=== PATIENT | female | born 1945 | race Caucasian/White ===

== ENCOUNTER → 2016-11-06 | Outpatient (CLI) | payer MEDICARE, BC ==
--- NOTE | 2016-11-07 08:36 | WOMENS IMAGING REPORT ---
EXAM DESCRIPTION: U/S BREAST UNILAT LIMITED COMPLETED DATE/TIME: 11/06/2016 9:23 am REASON FOR STUDY: RT BREAST PAIN;N64.4 N64.4 MASTODYNIA COMPARISON: 01/03/2016 TECHNIQUE: Real-time and static grayscale imaging performed of the right breast and chest wall targe yoly to the area of pain. Selected color Doppler images recorded. LIMITATIONS: None. FINDINGS: MASS: No mass identified. Normal glandular tissue. OTHER: No other significant finding. BIRAD: 1 Negative. RECOMMENDATION: RECOMMENDED FOLLOW-UP: Please continue bilateral screening mammography in December 2016 . Consider screening tomosynthesis COMMENT: The [employer] (ACR) has developed recommendations for screening MRI of the breasts in certain patient populations, to be used in conjunction with mammography. Breast MRI s urveillance may be appropriate for women with more than 20% lifetime risk of developing breast cancer as determined by genetic testing, significant family history of the disease, or history of mantle r adiation for Hodgkins Disease. ACR Practice Guidelines 2008. TECHNICAL DOCUMENTATION: JOB ID: [id number] [email or web address]- All Rights Reserved
== END ==
LOC: WI 08:16
PROVIDERS: ATTEND Pain Medicine Interventional Pain Medicine
DX: N64.4 Mastodynia (principal)
CPT/HCPCS: 76642

== ENCOUNTER → 2017-01-04 | Outpatient (CLI) | payer MEDICARE, BC | LOC: WI 10:31 | DX: Z12.31 Encounter for screening mammogram for malignant neoplasm of breast (principal) | CPT/HCPCS: 77067; G0202 ==

== ENCOUNTER 2017-10-09 12:19 | Emergency (ER) | payer MEDICARE, BC ==
--- NOTE | 2017-10-09 13:29 | ER Document Report ---
ED GI/ - General Chief Complaint: Urinary Problem Stated Complaint: URINATING ISSUES Time Seen by Provider: 10/09/17 13:17 Mode of Arrival: Ambulatory Information source: Patient, [facility] Records Notes: This 71-year-old female patient comes emergency room due to inability to urinate since yesterday and abdominal pain with constipation. She reports yesterday she would have small amounts of urine come out when she would sit and strain to try to have a bowel movement. She did feel like she cannot empty his bladder. She did a suppository early this morning and eventually did have some bowel movement. While at the hospital she had small hard bowel movement and felt like she emptied her bladder as she urinated a large volume. TRAVEL OUTSIDE OF THE [place] IN LAST 30 DAYS: No - Related Data Allergies/Adverse Reactions: prochlorperazine [From Compazine] Allergy (Verified 10/09/17 12:22) Past Medical History - General Information source: Patient - Social History Smoking Status: Never Smoker Cigarette use (# per day): No Chew tobacco use (# tins/day): No Smoking Education Provided: No Frequency of alcohol use: None Drug Abuse: None Occupation: Retired Lives with: Family Family History: Reviewed & Not Pertinent Patient has suicidal ideation: No Patient has homicidal ideation: No - Past Medical History Cardiac Medical History: Reports: Hx Hypercholesterolemia, Hx Hypertension Pulmonary Medical History: Reports: None EENT Medical History: Reports: None Neurological Medical History: Reports: None Endocrine Medical History: Reports: None Renal/ Medical History: Reports: None GI Medical History: Reports: Hx Irritable Bowel Musculoskeltal Medical History: Reports None Psychiatric Medical History: Reports: Hx Anxiety, Hx Depression Past Surgical History: Reports: Hx Abdominal Surgery - Oratory laparotomy, Hx Cholecystectomy, Hx Hysterectomy, Hx Neurologic Surgery - Cervical fusion from C4 through C7, Hx Orthopedic Surgery - Right carpal tunnel surgery, left wrist tendonitis surgery, shoulder surger, Hx Tonsillectomy, Other - Right eye surgery. L4-5 lumbar laminectomy Review of Systems - Review of Systems Constitutional: No symptoms reported EENT: No symptoms reported Cardiovascular: No symptoms reported Respiratory: No symptoms reported Gastrointestinal: See HPI Genitourinary: See HPI Female Genitourinary: Post menopausal Musculoskeletal: No symptoms reported Skin: No symptoms reported Hematologic/Lymphatic: No symptoms reported Neurological/Psychological: No symptoms reported Physical Exam - Vital signs Vitals: Temp Pulse Resp BP Pulse Ox 99.7 F 97 21 H 124/77 95 10/09/17 12:26 10/09/17 12:26 10/09/17 12:26 10/09/17 12:26 10/09/17 12:26 Interpretation: Normal - General General appearance: Appears well, Alert In distress: None - HEENT Head: Normocephalic, Atraumatic Eyes: Normal Pupils: PERRL Neck: Supple - Respiratory Respiratory status: No respiratory distress Breath sounds: Normal - Cardiovascular Rhythm: Regular Heart sounds: Normal auscultation Murmur: No - Abdominal Inspection: Normal Bowel sounds: Normal Tenderness: Tender - Some minimal suprapubic tenderness on palpation where the patient reports a full sensation in her bladder - Back Back: Normal - Extremities General upper extremity: Normal inspection, Nontender, Normal color, Normal ROM , Normal temperature General lower extremity: Normal inspection, Nontender, Normal color, Normal ROM , Normal temperature, Normal weight bearing - Neurological Neuro grossly intact: Yes - Psychological Associated symptoms: Normal affect, Normal mood - Skin Skin Temperature: Warm Skin Moisture: Dry Skin Color: Normal Course - Re-evaluation Re-evalutation: 10/09/17 21:43 A Valentin catheter was placed and the patient went to have a KUB done. When she came back the volume was measured at 355 mL's of urine. The KUB showed a lot of stool in the colon but no fecal impaction. The urinalysis did not show signs of infection. She was given a bottle of mag citrate to drink. A leg bag was placed. The catheter will be left as 355 mL's of residual volume suggests that this will be more of a problem if she does not get her bowels moving. Also recommended to drink lots of fluids and start taking MiraLAX tomorrow. After her bowels have been moving quite well for at least a day, then she was instructed on how to use a syringe to deflate the balloon and remove the Valentin catheter. If she has no further problems then she should just stay on MiraLAX. If she has more constipation problems or more problems emptying her bladder and she should follow-up with a primary care provider this week. - Vital Signs Vital signs: Temp Pulse Resp BP Pulse Ox 98.4 F 103 H 21 H 104/59 L 93 10/09/17 16:08 10/09/17 16:08 10/09/17 12:26 10/09/17 16:08 10/09/17 16:08 - Diagnostic Test Radiology reviewed: Image reviewed, Reports reviewed - Large amount of stool throughout the colon Discharge - Discharge Clinical Impression: Acute urinary retention Constipation Qualifiers: Constipation type: unspecified constipation type Qualified Code(s): K59.00 - Constipation, unspecified Condition: Stable Disposition: HOME, SELF-CARE Additional Instructions: You appear to have urinary retention caused by constipation. Valentin catheter placement showed a urine residual 335 mL. This shows you are still unable to empty her bladder so the catheter will be left until you have had several large bowel movements. There was no sign of urinary tract infection. You were given a bottle of amnesia of citrate to drink here. You should drink lots of water when you get home. Start taking MiraLAX every day and drink lots of fluids every day. Once your bowels are moving well, you may remove the catheter. He will be sent home with a syringe to deflate the balloon before you pull the catheter out. You should follow-up with your primary care provider later this week if you are not having good bowel movements and able to remove the catheter and then began emptying your bladder as you usually would. RETURN TO THE EMERGENCY ROOM IF ANY NEW OR WORSENING SYMPTOMS.
[2017-10-09] MEDS ORDERED: MAGNESIUM CITRATE 296 ML BOTTLE PO ONE (14:17)
[2017-10-09 14:20] LABS: APPEARANCE,URINE CLEAR; BILIRUBIN,URINE NEGATIVE (NEGATIVE); COLOR,URINE YELLOW; GLUCOSE, URINE NEGATIVE (NEGATIVE); KETONES,URINE NEGATIVE (NEGATIVE); LEUKOCYTE ESTERASE,URINE NEGATIVE (NEGATIVE); NITRITE,URINE NEGATIVE (NEGATIVE); PROTEIN,URINE NEGATIVE (NEGATIVE); UROBILINOGEN,URINE NEGATIVE mg/dL (<2.0)
--- NOTE | 2017-10-09 14:27 | RADIOLOGY REPORT (SQ) ---
EXAM DESCRIPTION: KUB/ABDOMEN (SINGLE VIEW) COMPLETED DATE/TIME: 10/09/2017 2:18 pm REASON FOR STUDY: Constipation COMPARISON: None. NUMBER OF VIEWS: One view. TECHNIQUE: Supine radiographic image of the abdomen acquired. LIMITATIONS: None. FINDINGS: BOWEL GAS PATTERN: Normal bowel gas pattern. Moderate amount of stool throughout. No dil ated loops. CALCIFICATIONS: No suspicious calcifications. SOFT TISSUES: No gross mass or suggestion of organomegaly. HARDWARE: None in the abdomen. BONES: No acute fracture. No worrisome bone lesions. OTHER: No other significant finding. IMPRESSION: NO RADIOGRAPHIC EVIDENCE FOR ACUTE ABDOMINAL DISEASE. TECHNICAL DOCUMENTATION: JOB ID: [id number] [employer]- All Rights Reserved
[2017-10-09 16:15] VITALS: BP 104/59
== END 2017-10-09 16:15 | disposition home or self-care (01) ==
LOC: ER 12:19
DX: R33.9 Retention of urine, unspecified (principal); K59.00 Constipation, unspecified; E78.00 Pure hypercholesterolemia, unspecified; I10 Essential (primary) hypertension; Z90.49 Acquired absence of other specified parts of digestive tract; Z90.710 Acquired absence of both cervix and uterus; Z98.1 Arthrodesis status
CPT/HCPCS: 99284; 51702; 81001; 74018; J3490

== ENCOUNTER 2017-10-12 12:28 | Emergency (ER) | payer MEDICARE, BC ==
--- NOTE | 2017-10-12 14:06 | ER Document Report ---
HPI - HPI Patient complains to provider of: Needs Harrell removed Pain Level: Denies Context: 71-year-old female that came in the other day to the emergency room with constipation and inability to empty her bladder is now relieved the constipation and was told by Dr. Li that she get her Harrell removed today. She was not given a syringe that she had to come back to the emergency room to get the Harrell removed. No abdominal pain, nausea, vomiting, and or fever. Associated Symptoms: None Exacerbated by: Denies Relieved by: Denies Similar symptoms previously: No Recently seen / treated by doctor: No - ROS ROS below otherwise negative: Yes Systems Reviewed and Negative: Yes All other systems reviewed and negative Past Medical History - General Information source: Patient - Social History Smoking Status: Never Smoker Frequency of alcohol use: None Drug Abuse: None Lives with: Family Family History: Reviewed & Not Pertinent - Past Medical History Cardiac Medical History: Reports: Hx Hypercholesterolemia, Hx Hypertension Renal/ Medical History: Denies: Hx Peritoneal Dialysis GI Medical History: Reports: Hx Irritable Bowel Psychiatric Medical History: Reports: Hx Anxiety, Hx Depression Past Surgical History: Reports: Hx Abdominal Surgery - Oratory laparotomy, Hx Cholecystectomy, Hx Hysterectomy, Hx Neurologic Surgery - Cervical fusion from C4 through C7, Hx Orthopedic Surgery - Right carpal tunnel surgery, left wrist tendonitis surgery, shoulder surger, Hx Tonsillectomy, Other - Right eye surgery. L4-5 lumbar laminectomy Vertical Provider Document - CONSTITUTIONAL Agree With Documented VS: Yes Exam Limitations: No Limitations - INFECTION CONTROL TRAVEL OUTSIDE OF THE [place] IN LAST 30 DAYS: No - HEENT HEENT: Normocephalic - NECK Neck: Supple - RESPIRATORY O2 Sat by Pulse Oximetry: 92 - GI/ABDOMEN Gastrointestinal: Abdomen Soft, Abdomen Non-Tender - MUSCULOSKELETAL/EXTREMETIES Musculoskeletal/Extremeties: DOMINGUEZ HWANG - NEURO Level of Consciousness: Awake, Alert, Appropriate - DERM Integumentary: Warm, Dry Course - Re-evaluation Re-evalutation: 10/12/17 14:17 I removed the harrell - Vital Signs Vital signs: Temp Pulse Resp BP Pulse Ox 98.3 F 68 16 140/76 H 92 10/12/17 12:37 10/12/17 12:37 10/12/17 12:37 10/12/17 12:37 10/12/17 12:37 Discharge - Discharge Clinical Impression: Encounter for Harrell catheter removal Condition: Good Disposition: HOME, SELF-CARE Additional Instructions: Return to the emergency room your primary care doctor if he get any symptoms of a urinary tract infection which would be burning with urination frequency urgency hard to hold it, if you develop a abdominal pain or fever. continue the MiraLAX 1 capful per day with 8 ounces of water so you will not get constipated again you you remember your question, call [phone] Shanda
[2017-10-12 14:27] VITALS: BP 132/89
== END 2017-10-12 14:32 | disposition home or self-care (01) ==
LOC: ER 12:28
DX: Z46.89 Encounter for fitting and adjustment of other specified devices (principal); T83.9XXA Unspecified complication of genitourinary prosthetic device, implant and graft, initial encounter; K59.00 Constipation, unspecified
CPT/HCPCS: 99283

== ENCOUNTER 2017-12-07 20:27 | Emergency (ER) | payer MEDICARE, BC ==
[2017-12-07 21:22] LABS: APPEARANCE,URINE SLIGHTLY-CLOUDY; BILIRUBIN,URINE NEGATIVE (NEGATIVE); COLOR,URINE YELLOW; GLUCOSE, URINE NEGATIVE (NEGATIVE); KETONES,URINE NEGATIVE (NEGATIVE); LEUKOCYTE ESTERASE,URINE LARGE (NEGATIVE); NITRITE,URINE NEGATIVE (NEGATIVE); PROTEIN,URINE NEGATIVE (NEGATIVE); URINE SPECIFIC GRAVITY 1.023
--- NOTE | 2017-12-07 21:50 | EKG REPORT ---
SEVERITY:- OTHERWISE NORMAL ECG - SINUS RHYTHM BORDERLINE LEFT AXIS DEVIATION : Confirmed by: Best Lovelace MD 07-Dec-2017 21:50:23
--- NOTE | 2017-12-07 22:19 | RADIOLOGY REPORT (SQ) ---
EXAM DESCRIPTION: CHEST SINGLE VIEW COMPLETED DATE/TIME: 12/07/2017 10:12 pm REASON FOR STUDY: chest pain COMPARISON: None. NUMBER OF VIEWS: One view. TECHNIQUE: Single frontal radiographic view of the chest acquired. LIMITATIONS: None. FINDINGS: LUNGS AND PLEURA: No opacities, masses or pneumothorax. No pleural effusion. MEDIASTINUM AND HILAR STRUCTURES: No masses. Contour normal. HEART AND VASCULAR STRUCTURES: Heart enlarged without failure. Normal vasculature. BONES: No acute findings. HARDWARE: None in the chest. OTHER: No other significant finding. IMPRESSION: HEART ENLARGED WITHOUT FAILURE. NO OTHER SIGNIFICANT RADIOGRAPHIC FINDING IN THE CHEST. TECHNICAL DOCUMENTATION: JOB ID: [id number] [employer]- All Rights Reserved Reading location - IP/workstation name: [email or web address]
[2017-12-07 23:13] LABS: ABSOLUTE BASOPHILS # (AUTO) 0.1 10^3/uL (0.0-0.2); ABSOLUTE EOSINOPHILS # (AUTO) 0.1 10^3/uL (0.0-0.6); ABSOLUTE LYMPHOCYTES (AUTO) 1.9 10^3/uL (0.5-4.7); ABSOLUTE MONOCYTES (AUTO) 0.9 10^3/uL (0.1-1.4); ABSOLUTE NEUT (AUTO) 9.4 10^3/uL (1.7-8.2); BASOPHILS % (AUTO) 0.5 % (0-2); EOSINOPHILS % (AUTO) 1.2 % (0-6); HEMATOCRIT 40.1 % (36.0-47.0); HEMOGLOBIN 13.6 g/dL (12.0-15.5); LYMPHOCYTES % (AUTO) 15.3 % (13-45); MEAN CORPUSCULAR HEMOGLOBIN 30.4 pg (27.0-33.4); MEAN CORPUSCULAR HGB CONC 33.9 g/dL (32.0-36.0); MEAN CORPUSCULAR VOLUME 90 fl (80-97); MONOCYTES % (AUTO) 7.5 % (3-13); PLATELET COUNT 217 10^3/uL (150-450); RED BLOOD COUNT 4.48 10^6/uL (3.72-5.28); RED CELL DISTRIBUTION WIDTH 13.8 % (11.5-14.0); SEGMENTED NEUTROPHILS % (AUTO) 75.5 % (42-78); TOTAL CELLS COUNTED % (AUTO) 100 %; WHITE BLOOD COUNT 12.4 10^3/uL (4.0-10.5)
[2017-12-07] MEDS ORDERED: CEPHALEXIN 500 MG CAPSULE PO ONE (23:18)
[2017-12-07] MEDS ORDERED: HALOPERIDOL LACTATE INJ 5 MG/1 ML VIAL IV ONE (23:18)
[2017-12-07] MEDS ORDERED: FAMOTIDINE 20 MG TABLET PO ONE (23:18)
[2017-12-07 23:26] LABS: ANION GAP 12 (5-19); BLOOD UREA NITROGEN 22 mg/dL (7-20); CALCIUM 9.9 mg/dL (8.4-10.2); CARBON DIOXIDE 24 mmol/L (22-30); CHLORIDE 106 mmol/L (98-107); CREATINE KINASE 75 U/L (30-135); GLUCOSE 115 mg/dL (75-110); POTASSIUM 4.2 mmol/L (3.6-5.0); SODIUM 141.5 mmol/L (137-145)
--- NOTE | 2017-12-07 23:28 | ER Document Report ---
ED General - General Chief Complaint: Nausea Stated Complaint: NAUSEA/CHEST PAIN Time Seen by Provider: 12/07/17 21:51 Notes: Patient is a 72-year-old female with a past medical history of depression, anxiety, hypertension, and chronic nausea after a Ivon fundoplication that was performed in 2004 who presents with a "out of body experience" with associated nausea and epigastric abdominal discomfort. Patient states that she was sitting down at the dinner table after taking the first dose of Marinol which was prescribed to her for chronic nausea. She reports that she felt like she was looking "from the outside in" on the entire seen in the kitchen. She states that she found this experience to be extremely disturbing. She states that she also had severe nausea during this episode with associated epigastric abdominal discomfort. She denies any distinct chest pain. She notes that the epigastric abdominal discomfort was a dull, mild, aching pain. She notes that that pain has since resolved. She does continue to feel nauseated. She took Zofran at home which did not improve her symptoms. Nothing worsens her symptoms. She does have a history of chronic daily nausea which she notes is roughly the same as it is currently. She has not seen her primary care doctor regarding today's episode. She denies any history of similar symptoms in the past. She has no history of cardiac disease, DVT or pulmonary embolus. TRAVEL OUTSIDE OF THE [place] IN LAST 30 DAYS: No - Related Data Allergies/Adverse Reactions: prochlorperazine [From Compazine] Allergy (Verified 10/12/17 14:06) Past Medical History - General Information source: Patient - Social History Smoking Status: Never Smoker Frequency of alcohol use: None Drug Abuse: None Lives with: Spouse/Significant other Family History: Reviewed & Not Pertinent Patient has suicidal ideation: No Patient has homicidal ideation: No - Past Medical History Cardiac Medical History: Reports: Hx Hypercholesterolemia, Hx Hypertension Renal/ Medical History: Denies: Hx Peritoneal Dialysis GI Medical History: Reports: Hx Irritable Bowel Psychiatric Medical History: Reports: Hx Anxiety, Hx Depression Past Surgical History: Reports: Hx Abdominal Surgery - Oratory laparotomy, Hx Cholecystectomy, Hx Hysterectomy, Hx Neurologic Surgery - Cervical fusion from C4 through C7, Hx Orthopedic Surgery - Right carpal tunnel surgery, left wrist tendonitis surgery, shoulder surger, Hx Tonsillectomy, Other - Right eye surgery. L4-5 lumbar laminectomy Review of Systems - Review of Systems Notes: Constitutional: Negative for fever. HENT: Negative for sore throat. Eyes: Negative for visual changes. Cardiovascular: Negative for chest pain. Respiratory: Negative for shortness of breath. Gastrointestinal: Positive for epigastric abdominal pain and nausea Genitourinary: Negative for dysuria. Musculoskeletal: Negative for back pain. Skin: Negative for rash. Neurological: Negative for headaches, weakness or numbness. 10 point ROS negative except as marked above and in HPI. Physical Exam - Vital signs Vitals: Temp Pulse Resp BP Pulse Ox 98.5 F 87 14 147/81 H 96 12/07/17 20:47 12/07/17 20:47 12/07/17 20:47 12/07/17 20:47 12/07/17 20:47 Interpretation: Normal Notes: PHYSICAL EXAMINATION: GENERAL: Well-appearing, well-nourished and in no acute distress. HEAD: Atraumatic, normocephalic. EYES: Pupils equal round and reactive to light, extraocular movements intact, sclera anicteric, conjunctiva are normal. ENT: nares patent, oropharynx clear without exudates. Moist mucous membranes. NECK: Normal range of motion, supple without lymphadenopathy LUNGS: Breath sounds clear to auscultation bilaterally and equal. No wheezes rales or rhonchi. HEART: Regular rate and rhythm without murmurs ABDOMEN: Soft, nontender, normoactive bowel sounds. No guarding, no rebound. No masses appreciated. EXTREMITIES: Normal range of motion, no pitting or edema. No cyanosis. NEUROLOGICAL: No focal neurological deficits. Moves all extremities spontaneously and on command. PSYCH: Mildly anxious SKIN: Warm, Dry, normal turgor, no rashes or lesions noted. Course - Re-evaluation Re-evalutation: 12/07/17 23:26 Patient presents with multiple atypical complaints, mostly complaining about an "out of body experience" that occurred shortly prior to arrival. The patient reports that shortly after taking Marinol, she was sitting down to dinner table , became very nauseated and felt like she was looking at the room from the "outside in". She notes that she had an episode of a dull pressure-like sensation in her epigastrium but denies any distinct chest pain, shortness of breath, or radiation of the discomfort. At the time of my assessment she notes that all symptoms except the nausea have since resolved. The patient does relate a very long-standing history of chronic nausea ever since she had a Ivon fundoplication in 2004. Patient does relate a history of recurrent reflux symptoms and I do believe this is likely contributing to some of her chronic nausea she is not currently on any therapies for this. Patient's EKG is unremarkable without any ischemic changes. Troponin is negative and have a very low clinical suspicion for an acute myocardial infarction given her clinical history and absence of any pain or pressure at time of assessment. PE again seems unlikely given clinical history, absence of tachycardia or risk factors. Chest x-ray is clear without evidence of pneumothorax or widened mediastinum. Pressures are symmetric in the bilateral upper extremities and again clinical history is not consistent with an aortic dissection. I will start patient on famotidine as an outpatient as well as Carafate prior to meals. Clinical history and exam are not consistent with biliary pathology, acute hepatitis, acute pancreatitis, or any other life-threatening pathology. At this time will discharge with return precautions and follow-up recommendations. Verbal discharge instructions given a the bedside and opportunity for questions given. Medication warnings reviewed. Patient is in agreement with this plan and has verbalized understanding of return precautions and the need for primary care follow-up in the next 24-72 hours. - Vital Signs Vital signs: Temp Pulse Resp BP Pulse Ox 98.5 F 87 19 142/72 H 97 12/07/17 20:47 12/07/17 20:47 12/08/17 01:31 12/08/17 01:31 12/08/17 01:31 - Laboratory Result Diagrams: 12/07/17 23:00 12/07/17 23:00 Laboratory results interpreted by me: 12/07/17 12/07/17 12/07/17 20:54 23:00 23:00 WBC 12.4 H Absolute Neutrophils 9.4 H BUN 22 H Est GFR ( Amer) 58 L Est GFR (Non-Af Amer) 48 L Glucose 115 H Urine Urobilinogen 2.0 H Ur Leukocyte Esterase LARGE H - Diagnostic Test Radiology reviewed: Image reviewed, Reports reviewed Radiology results interpreted by me: 12/07/17 23:29 Chest x-ray: No acute infiltrate or pneumothorax - EKG Interpretation by Me Additional EKG results interpreted by me: 12/07/17 23:29 Normal sinus rhythm. Rate 88. No ST elevations or depressions. QTC is 460. Discharge - Discharge Clinical Impression: Epigastric pain, Nausea Gastroesophageal reflux Qualifiers: Esophagitis presence: esophagitis presence not specified Qualified Code(s): K21.9 - Gastro-esophageal reflux disease without esophagitis Condition: Good Disposition: HOME, SELF-CARE Additional Instructions: Your symptoms appear to be most consistent with stomach or upper intestinal irritation. Please begin taking famotidine 40 mg in the morning and 40 mg at night. This medicine can be purchased directly [id number]. You may also take medicine such as Pepto-Bismol or Tums to assist with your pain. Please return to emergency department immediately if you have worsening of your pain, shortness of breath, vomiting, become unable to exert yourself due to pain or difficulty breathing, you pass out, or have any pain that radiates into your arms, jaw, or back. Please also return if you have any additional symptoms that are concerning to you. Prescriptions: Sucralfate [Carafate 1 gm Tablet] 1 gm PO ACHS #120 tablet Referrals: MAC GARCIA MD [Primary Care Provider] - Follow up as needed
[2017-12-07 23:38] LABS: CREATINE KINASE MB 0.79 ng/mL (<4.55)
[2017-12-07 23:40] LABS: TROPONIN I < 0.012 ng/mL
[2017-12-07] MEDS ORDERED: SUCRALFATE 1 GM TABLET PO ONE (23:46)
[2017-12-08 01:57] VITALS: BP 142/72
== END 2017-12-08 02:01 | disposition home or self-care (01) ==
LOC: ER 20:27
DX: K21.9 Gastro-esophageal reflux disease without esophagitis (principal); R11.0 Nausea; R07.9 Chest pain, unspecified; R10.13 Epigastric pain; E78.00 Pure hypercholesterolemia, unspecified; I10 Essential (primary) hypertension; Z90.49 Acquired absence of other specified parts of digestive tract; Z90.710 Acquired absence of both cervix and uterus; Z98.1 Arthrodesis status
CPT/HCPCS: 93005; 99284; 96374; 36415; 87086; 82553; 82550; 85025; 87088; 80048; 81001; 84484; 71045; 93010; A9270 ×2; J1630

== ENCOUNTER → 2018-01-09 | Outpatient (CLI) | payer MEDICARE, BC ==
--- NOTE | 2018-01-09 15:08 | WOMENS IMAGING REPORT ---
EXAM DESCRIPTION: 3D SCREENING MAMMO BILAT COMPLETED DATE/TIME: 01/09/2018 1:14 pm REASON FOR STUDY: ROUTINE SCREENING;Z12.31 Z12.31 ENCNTR SCREEN MAMMOGRAM FOR MALIGNANT NEOPLASM OF CAIN COMPARISON: 2013 to 2016 TECHNIQUE: Standard craniocaudal and mediolateral oblique views of each breast recorded using digita l acquisition and breast tomosynthesis. LIMITATIONS: None. FINDINGS: No masses, calcifications or architectural distortion. No areas of suspicion. Read with the assistance of CAD. .[facility] - R2 Cenova Version 1.3 .[facility] - R2 Cenova Version 1.3 .[facility] - R2 Cenova Version 2.4 .[facility] [place] - R2 Cenova Version 2.4 .[facility] - R2 Microbiology Manager Version 9.2 IMPRESSION: NORMAL MAMMOGRAM. BIRADS 1. BREAST DENSITY: b. There are scattered areas of fibroglandular density. BIRAD: 1 NEGATIVE RECOMMENDATION: ROUTINE SCREENING COMMENT: The patient has been notified of the results by letter per SA requirements. Additional no tification policies are in place for contacting patient with suspicious or incomplete findings. Quality ID #225: The [employer] recommends an annual screening mammogram for women aged 40 years or over. This facility utilizes a reminder system to ensure that all patients receive reminder letters, and/or direct phone calls for appointments. This includes reminders for routine scr eening mammograms, diagnostic mammograms, or other Breast Imaging Interventions when appropriate. Th is patient will be placed in the appropriate reminder system. The [employer] (ACR) has developed recommendations for screening MRI of the breast s in certain patient populations, to be used in conjunction with mammography. Breast MRI surveillanc e may be appropriate for women with more than 20% lifetime risk of developing breast cancer as deter mined by genetic testing, significant family history of the disease, or history of mantle radiation f or Hodgkins Disease. ACR Practice Guidelines 2008. DBT Technology DBT is a type of tomographic mammography. With conventional mammography, overlapping breast tissue ma y make lesions difficult to detect, even with good compression. DBT uses an x-ray tube that rotates a round the breast, taking images at different angles. These images are then combined to create thin sl ices of the breast that the radiologist can view as a 3D reconstruction. The [employer] De unit can perform full-field digital mammograms (2D imaging); or DBT (3D imaging); or both, in a combination mode that quickly performs both the mammogram and the tomosynthesis scan while the breast is still compressed. PQRS 6045F: Fluoroscopic imaging is not utilized for breast tomosynthesis. TECHNICAL DOCUMENTATION: FINDING NUMBER: (1) ASSESSMENT: (1) JOB ID: [id number] [employer]- All Rights Reserved Reading location - IP/workstation name: [email or web address] [email or web address]
== END ==
LOC: WI 10:49
DX: Z12.31 Encounter for screening mammogram for malignant neoplasm of breast (principal)
CPT/HCPCS: 77063; 77067

== ENCOUNTER → 2019-01-15 | Outpatient (CLI) | payer MEDICARE, BC ==
--- NOTE | 2019-01-15 14:24 | WOMENS IMAGING REPORT ---
EXAM DESCRIPTION: 3D SCREENING MAMMO BILAT COMPLETED DATE/TIME: 01/15/2019 1:52 pm REASON FOR STUDY: Z12.31 ROUTINE 3D BILATERAL SCREENING Z12.31 ENCNTR SCREEN MAMMOGRAM FOR MALIGNAN T NEOPLASM OF CAIN COMPARISON: 01/09/2018 and 01/04/2017. TECHNIQUE: Standard craniocaudal and mediolateral oblique views of each breast recorded using digita l acquisition and breast tomosynthesis. LIMITATIONS: None. FINDINGS: No masses, calcifications or architectural distortion. No areas of suspicion. Read with the assistance of CAD. .[facility] - R2 Cenova Version 1.3 .[facility] - R2 Cenova Version 2.1 .[facility] - R2 Cenova Version 2.4 .[facility] [place] - R2 Cenova Version 2.4 .[facility] - R2 [employer] Attendant Version 9.2 IMPRESSION: NORMAL MAMMOGRAM. BIRADS 1. BREAST DENSITY: b. There are scattered areas of fibroglandular density. BIRAD: 1 NEGATIVE RECOMMENDATION: ROUTINE SCREENING COMMENT: The patient has been notified of the results by letter per SA requirements. Additional no tification policies are in place for contacting patient with suspicious or incomplete findings. Quality ID #[id number]: The [employer] recommends an annual screening mammogram for women aged 40 years or over. This facility utilizes a reminder system to ensure that all patients receive reminder letters, and/or direct phone calls for appointments. This includes reminders for routine scr eening mammograms, diagnostic mammograms, or other Breast Imaging Interventions when appropriate. Th is patient will be placed in the appropriate reminder system. The [employer] (ACR) has developed recommendations for screening MRI of the breast s in certain patient populations, to be used in conjunction with mammography. Breast MRI surveillanc e may be appropriate for women with more than 20% lifetime risk of developing breast cancer as deter mined by genetic testing, significant family history of the disease, or history of mantle radiation f or Hodgkins Disease. ACR Practice Guidelines 2008. DBT Technology DBT is a type of tomographic mammography. With conventional mammography, overlapping breast tissue ma y make lesions difficult to detect, even with good compression. DBT uses an x-ray tube that rotates a round the breast, taking images at different angles. These images are then combined to create thin sl ices of the breast that the radiologist can view as a 3D reconstruction. The Five minutes unit can perform full-field digital mammograms (2D imaging); or DBT (3D imaging); or both, in a combination mode that quickly performs both the mammogram and the tomosynthesis scan while the breast is still compressed. PQRS 6045F: Fluoroscopic imaging is not utilized for breast tomosynthesis. TECHNICAL DOCUMENTATION: FINDING NUMBER: (1) ASSESSMENT: (1) JOB ID: [id number] [employer]- All Rights Reserved Reading location - IP/workstation name: [email or web address]
== END ==
LOC: WI 13:33
PROVIDERS: ATTEND Obstetrics & Gynecology Gynecology
DX: Z12.31 Encounter for screening mammogram for malignant neoplasm of breast (principal)
CPT/HCPCS: 77063; 77067

== ENCOUNTER → 2019-02-28 | Outpatient (CLI) | payer MEDICARE, BC ==
[2019-02-28 15:33] LABS: APPEARANCE,URINE CLEAR; BILIRUBIN,URINE NEGATIVE (NEGATIVE); COLOR,URINE YELLOW; GLUCOSE, URINE NEGATIVE (NEGATIVE); KETONES,URINE NEGATIVE (NEGATIVE); LEUKOCYTE ESTERASE,URINE NEGATIVE (NEGATIVE); NITRITE,URINE NEGATIVE (NEGATIVE); PROTEIN,URINE NEGATIVE (NEGATIVE); URINE SPECIFIC GRAVITY 1.011; UROBILINOGEN,URINE NEGATIVE mg/dL (<2.0)
[2019-02-28 15:46] LABS: ANION GAP 11 (5-19); BLOOD UREA NITROGEN 19 mg/dL (7-20); CALCIUM 9.8 mg/dL (8.4-10.2); CARBON DIOXIDE 27 mmol/L (22-30); CHLORIDE 104 mmol/L (98-107); GLUCOSE 111 mg/dL (75-110); POTASSIUM 4.5 mmol/L (3.6-5.0); SODIUM 142.4 mmol/L (137-145)
== END ==
LOC: OD 14:51
PROVIDERS: ATTEND Internal Medicine Nephrology
DX: I10 Essential (primary) hypertension (principal); E78.5 Hyperlipidemia, unspecified
CPT/HCPCS: 36415; 80048; 81001

== ENCOUNTER 2020-04-21 12:39 | Emergency (ER) | payer MEDICARE, BC ==
--- NOTE | 2020-04-21 13:10 | ER Document Report ---
ED Medical Screen (RME) - General Chief Complaint: Tremor Stated Complaint: SHORT OF BREATH Time Seen by Provider: 04/21/20 13:00 Primary Care Provider: MAC GARCIA MD [Primary Care Provider] - Follow up as needed TRAVEL OUTSIDE OF THE [place] IN LAST 30 DAYS: No - HPI Notes: 04/21/20 13:09 I was asked by the nurse to come check on the patient in the lobby for concerns of shortness of breath. 74-year-old female presents by private vehicle for muscle reaction and shortness of breath. states that her mental health medication was changed on March 31 2020 by her neurologist. says that the symptoms have become worse since last week. Denies any chest pain, nausea vomiting diarrhea, abdominal pain. Vital signs are stable. Possibility for patient presenting with acute exacerbation of tardive dyskinesia. Patient brought back to main side to be seen by a main side provider. I have greeted and performed a rapid initial assessment of this patient. A comprehensive ED assessment and evaluation of the patient, analysis of test results and completion of the medical decision making process will be conducted by additional ED providers. PHYSICAL EXAMINATION: GENERAL: Well-appearing, well-nourished and in moderate distress, diaphoretic HEAD: Atraumatic, normocephalic. CV: s1, s2 regular LUNGS: Tachypnea, slight wheezes upper lobes Musculoskeletal: Normal range of motion NEUROLOGICAL: Involuntary movements of arms, head, facial movements SKIN: Warm, Dry, normal turgor, no rashes or lesions noted. - Related Data Allergies/Adverse Reactions: prochlorperazine [From Compazine] Allergy (Verified 10/12/17 14:06) Past Medical History - Past Medical History Cardiac Medical History: Reports: Hx Hypercholesterolemia, Hx Hypertension Renal/ Medical History: Denies: Hx Peritoneal Dialysis GI Medical History: Reports: Hx Irritable Bowel Psychiatric Medical History: Reports: Hx Anxiety, Hx Depression Past Surgical History: Reports: Hx Abdominal Surgery - Oratory laparotomy, Hx Cholecystectomy, Hx Hysterectomy, Hx Neurologic Surgery - Cervical fusion from C4 through C7, Hx Orthopedic Surgery - Right carpal tunnel surgery, left wrist tendonitis surgery, shoulder surger, Hx Tonsillectomy, Other - Right eye surgery. L4-5 lumbar laminectomy Physical Exam - Vital signs Vitals: Temp Pulse Resp BP Pulse Ox 98.7 F 97 28 H 136/107 H 98 04/21/20 12:51 04/21/20 12:51 04/21/20 12:51 04/21/20 12:51 04/21/20 12:51 Course - Vital Signs Vital signs: Temp Pulse Resp BP Pulse Ox 98.7 F 97 28 H 136/107 H 98 04/21/20 12:51 04/21/20 12:51 04/21/20 12:51 04/21/20 12:51 04/21/20 12:51 Doctor's Discharge - Discharge Referrals: MAC GARCIA MD [Primary Care Provider] - Follow up as needed
[2020-04-21] MEDS ORDERED: DIPHENHYDRAMINE HCL 50 MG/ML VIAL IV ONE ×2 (13:33→16:20)
[2020-04-21 13:49] LABS: VENOUS BLOOD BASE EXCESS -6.7 mmol/L; VENOUS BLOOD HCO3 14.4 mmol/L (20-32); VENOUS BLOOD PCO2 20.3 mmHg (35-63); VENOUS BLOOD PH 7.47 (7.30-7.42)
[2020-04-21 13:52] LABS: ABSOLUTE BASOPHILS # (AUTO) 0.1 10^3/uL (0.0-0.2); ABSOLUTE EOSINOPHILS # (AUTO) 0.2 10^3/uL (0.0-0.6); ABSOLUTE MONOCYTES (AUTO) 0.9 10^3/uL (0.1-1.4); ABSOLUTE NEUT (AUTO) 7.3 10^3/uL (1.7-8.2); BASOPHILS % (AUTO) 0.9 % (0-2); EOSINOPHILS % (AUTO) 1.5 % (0-6); HEMATOCRIT 41.2 % (36.0-47.0); HEMOGLOBIN 14.3 g/dL (12.0-15.5); MEAN CORPUSCULAR HEMOGLOBIN 31.5 pg (27.0-33.4); MEAN CORPUSCULAR HGB CONC 34.8 g/dL (32.0-36.0); MEAN CORPUSCULAR VOLUME 90 fl (80-97); MONOCYTES % (AUTO) 8.9 % (3-13); PLATELET COUNT 245 10^3/uL (150-450); RED BLOOD COUNT 4.56 10^6/uL (3.72-5.28); RED CELL DISTRIBUTION WIDTH 13.3 % (11.5-14.0); SEGMENTED NEUTROPHILS % (AUTO) 69.7 % (42-78); TOTAL CELLS COUNTED % (AUTO) 100 %; WHITE BLOOD COUNT 10.4 10^3/uL (4.0-10.5)
[2020-04-21 14:10] LABS: ALBUMIN 4.6 g/dL (3.5-5.0); ALKALINE PHOSPHATASE 93 U/L (38-126); ANION GAP 11 (5-19); ASPARTATE AMINO TRANSFERASE 28 U/L (14-36); BILIRUBIN,TOTAL 0.5 mg/dL (0.2-1.3); BLOOD UREA NITROGEN 22 mg/dL (7-20); CALCIUM 10.7 mg/dL (8.4-10.2); CARBON DIOXIDE 17 mmol/L (22-30); CHLORIDE 113 mmol/L (98-107); GLUCOSE 111 mg/dL (75-110); POTASSIUM 4.6 mmol/L (3.6-5.0); TOTAL PROTEIN 7.2 g/dL (6.3-8.2)
--- NOTE | 2020-04-21 14:23 | RADIOLOGY REPORT (SQ) ---
EXAM DESCRIPTION: CHEST SINGLE VIEW IMAGES COMPLETED DATE/TIME: 04/21/2020 1:56 pm REASON FOR STUDY: sob COMPARISON: None. EXAM PARAMETERS: NUMBER OF VIEWS: One view. TECHNIQUE: Single frontal radiographic view of the chest acquired. RADIATION DOSE: NA LIMITATIONS: None. FINDINGS: LUNGS AND PLEURA: No opacities, masses or pneumothorax. No pleural effusion. MEDIASTINUM AND HILAR STRUCTURES: No masses. Contour normal. HEART AND VASCULAR STRUCTURES: Heart normal in size. Normal vasculature. BONES: No acute findings. HARDWARE: None in the chest. OTHER: No other significant finding. IMPRESSION: NO ACUTE RADIOGRAPHIC FINDING IN THE CHEST. TECHNICAL DOCUMENTATION: JOB ID: [id number] 2010 [email or web address]- All Rights Reserved Reading location - IP/workstation name: [email or web address]
[2020-04-21] MEDS ORDERED: BENZTROPINE MESYLATE 1 MG TABLET PO ONE (15:44)
[2020-04-21 16:40] LABS: APPEARANCE,URINE SLIGHTLY-CLOUDY; BILIRUBIN,URINE NEGATIVE (NEGATIVE); COLOR,URINE YELLOW; GLUCOSE, URINE NEGATIVE (NEGATIVE); KETONES,URINE TRACE mg/dL (NEGATIVE); LEUKOCYTE ESTERASE,URINE TRACE (NEGATIVE); NITRITE,URINE NEGATIVE (NEGATIVE); PROTEIN,URINE NEGATIVE (NEGATIVE); URINE SPECIFIC GRAVITY 1.017; UROBILINOGEN,URINE NEGATIVE mg/dL (<2.0)
--- NOTE | 2020-04-21 17:17 | ER Document Report ---
ED General - General Chief Complaint: tremors Stated Complaint: SHORT OF BREATH Time Seen by Provider: 04/21/20 13:00 Primary Care Provider: MAC GARCIA MD [Primary Care Provider] - Follow up as needed Mode of Arrival: Ambulatory Information source: Patient TRAVEL OUTSIDE OF THE [place] IN LAST 30 DAYS: No - HPI Notes: Patient has long history of depression. She has recently developed some cervical dystonia and tardive dyskinesia. She has been tried on several different medicines without significant relief. She also gets some botulism injections. She states that she was possibly seen in neurology clinic today however the appointment was canceled and they told the patient to come to the emergency department. She states that she feels she is short of breath because of her tardive dyskinesia and muscle spasms of her face. She does have some facial pain as well. This is fairly constant. Nothing makes it better or worse. It radiates throughout her face. It is moderate to severe. No cough cold or congestion. - Related Data Allergies/Adverse Reactions: prochlorperazine [From Compazine] Allergy (Verified 10/12/17 14:06) Past Medical History - General Information source: Patient - Social History Smoking Status: Never Smoker Chew tobacco use (# tins/day): No Frequency of alcohol use: None Drug Abuse: None Family History: Reviewed & Not Pertinent - Past Medical History Cardiac Medical History: Reports: Hx Hypercholesterolemia, Hx Hypertension Renal/ Medical History: Denies: Hx Peritoneal Dialysis GI Medical History: Reports: Hx Irritable Bowel Psychiatric Medical History: Reports: Hx Anxiety, Hx Depression Past Surgical History: Reports: Hx Abdominal Surgery - Oratory laparotomy, Hx Cholecystectomy, Hx Hysterectomy, Hx Neurologic Surgery - Cervical fusion from C4 through C7, Hx Orthopedic Surgery - Right carpal tunnel surgery, left wrist tendonitis surgery, shoulder surger, Hx Tonsillectomy, Other - Right eye surgery. L4-5 lumbar laminectomy Review of Systems - Review of Systems Constitutional: denies: Chills, Fever Cardiovascular: denies: Chest pain Respiratory: Short of breath. denies: Cough Gastrointestinal: denies: Diarrhea, Vomiting -: Yes All other systems reviewed and negative Physical Exam - Vital signs Vitals: Temp Pulse Resp BP Pulse Ox 98.7 F 97 28 H 136/107 H 98 04/21/20 12:51 04/21/20 12:51 04/21/20 12:51 04/21/20 12:51 04/21/20 12:51 Interpretation: Hypertensive - General General appearance: Appears well, Alert - HEENT Head: Normocephalic, Atraumatic Eyes: Normal Pupils: PERRL - Respiratory Respiratory status: No respiratory distress Chest status: Nontender Breath sounds: Normal Chest palpation: Normal - Cardiovascular Rhythm: Regular Heart sounds: Normal auscultation Murmur: No - Abdominal Inspection: Normal Distension: No distension Bowel sounds: Normal Tenderness: Nontender Organomegaly: No organomegaly - Back Back: Normal, Nontender - Extremities General upper extremity: Normal inspection, Nontender, Normal color, Normal ROM, Normal temperature General lower extremity: Normal inspection, Nontender, Normal color, Normal ROM, Normal temperature, Normal weight bearing. No: Hetal's sign - Neurological Neuro grossly intact: Yes Cognition: Normal Orientation: AAOx4 [place] Coma Scale Eye Opening: Spontaneous K[place] Coma Scale Verbal: Oriented [place] Coma Scale Motor: Obeys Commands Kaveh Coma Scale Total: 15 Speech: Normal Motor strength normal: LUE, RUE, LLE, RLE Sensory: Normal Notes: Patient has persistent muscle spasms of the face consistent with a tardive dyskinesia. - Psychological Associated symptoms: Normal affect, Normal mood - Skin Skin Temperature: Warm Skin Moisture: Dry Skin Color: Normal Course - Re-evaluation Re-evalutation: 04/21/20 17:19 Patient presents complaint of some shortness of breath and tardive dyskinesia/cervical dystonia type symptoms. Tried using Benadryl and Cogentin w alejandrah gave some mild relief. I will discharge patient home with some Cogentin. I did call and talk with the neurologist at [facility] who states that there is no significant inpatient treatment for this that patient requires outpatient follow-up. I did offer admission to the patient anyways since she did appear uncomfortable from the tardive dyskinesia but patient declined. I do not feel the patient requires admission for pulmonary or cardiac reasons. - Vital Signs Vital signs: Temp Pulse Resp BP Pulse Ox 98.7 F 97 28 H 136/107 H 98 04/21/20 13:06 04/21/20 12:51 04/21/20 12:51 04/21/20 12:51 04/21/20 12:51 - Laboratory Result Diagrams: 04/21/20 13:34 04/21/20 13:34 Laboratory results interpreted by me: 04/21/20 04/21/20 04/21/20 13:34 13:34 16:00 VBG pH 7.47 H VBG pCO2 20.3 L VBG HCO3 14.4 L Chloride 113 H Carbon Dioxide 17 L BUN 22 H Est GFR (MDRD) Non-Af 57 L Glucose 111 H Calcium 10.7 H Urine Ketones TRACE H Urine Blood MODERATE H Ur Leukocyte Esterase TRACE H Urine Ascorbic Acid 20 H - Diagnostic Test Radiology reviewed: Image reviewed, Reports reviewed Discharge - Discharge Clinical Impression: Tardive dyskinesia, Dystonia Condition: Stable Disposition: HOME, SELF-CARE Additional Instructions: Please follow up with Dr. Santizo at neurology as soon as possible. Prescriptions: Benztropine Mesylate [Cogentin 1 mg Tablet] 1 mg PO BID 15 Days #30 tablet Referrals: MAC GARCIA MD [Primary Care Provider] - Follow up as needed
[2020-04-21 17:46] VITALS: BP 143/87
== END 2020-04-21 18:04 | disposition home or self-care (01) ==
LOC: ER 12:39
DX: G24.01 Drug induced subacute dyskinesia (principal); G24.9 Dystonia, unspecified; R06.02 Shortness of breath; R51 Headache; Z88.8 Allergy status to other drugs, medicaments and biological substances; I10 Essential (primary) hypertension
CPT/HCPCS: 96376; 99285; 96374; 36415; 83605; 85025; 80053; 81001; 84484; 82803; 71045; A9270; J1200

== ENCOUNTER 2020-05-10 13:09 | Emergency (ER) | payer MEDICARE, BC ==
--- NOTE | 2020-05-10 13:44 | RADIOLOGY REPORT (SQ) ---
EXAM DESCRIPTION: CHEST SINGLE VIEW IMAGES COMPLETED DATE/TIME: 05/10/2020 1:36 pm REASON FOR STUDY: bed 7 difficulty breathing COMPARISON: 04/21/2020 EXAM PARAMETERS: NUMBER OF VIEWS: One view. TECHNIQUE: Single frontal radiographic view of the chest acquired. RADIATION DOSE: NA LIMITATIONS: None. FINDINGS: LUNGS AND PLEURA: No opacities, masses or pneumothorax. No pleural effusion. MEDIASTINUM AND HILAR STRUCTURES: No masses. Contour normal. HEART AND VASCULAR STRUCTURES: Heart normal in size. Normal vasculature. BONES: No acute findings. HARDWARE: None in the chest. OTHER: No other significant finding. IMPRESSION: NO ACUTE RADIOGRAPHIC FINDING IN THE CHEST. TECHNICAL DOCUMENTATION: JOB ID: [id number] 2010 [employer]- All Rights Reserved Reading location - IP/workstation name: [email or web address]
[2020-05-10 14:09] LABS: ABSOLUTE EOSINOPHILS # (AUTO) 0.1 10^3/uL (0.0-0.6); ABSOLUTE LYMPHOCYTES (AUTO) 1.4 10^3/uL (0.5-4.7); ABSOLUTE MONOCYTES (AUTO) 0.7 10^3/uL (0.1-1.4); ABSOLUTE NEUT (AUTO) 6.6 10^3/uL (1.7-8.2); BASOPHILS % (AUTO) 0.5 % (0-2); EOSINOPHILS % (AUTO) 0.7 % (0-6); HEMATOCRIT 42.6 % (36.0-47.0); HEMOGLOBIN 14.6 g/dL (12.0-15.5); LYMPHOCYTES % (AUTO) 16.2 % (13-45); MEAN CORPUSCULAR HEMOGLOBIN 31.1 pg (27.0-33.4); MEAN CORPUSCULAR HGB CONC 34.2 g/dL (32.0-36.0); MEAN CORPUSCULAR VOLUME 91 fl (80-97); MONOCYTES % (AUTO) 7.9 % (3-13); PLATELET COUNT 238 10^3/uL (150-450); RED CELL DISTRIBUTION WIDTH 13.5 % (11.5-14.0); SEGMENTED NEUTROPHILS % (AUTO) 74.7 % (42-78); TOTAL CELLS COUNTED % (AUTO) 100 %; WHITE BLOOD COUNT 8.9 10^3/uL (4.0-10.5)
[2020-05-10 14:14] LABS: VENOUS BLOOD BASE EXCESS -4.3 mmol/L; VENOUS BLOOD HCO3 19.9 mmol/L (20-32); VENOUS BLOOD PCO2 33.7 mmHg (35-63); VENOUS BLOOD PH 7.39 (7.30-7.42)
[2020-05-10] MEDS ORDERED: BENZTROPINE MESYLATE INJ 2 MG/2 ML AMPULE IM ONE (14:23)
[2020-05-10] MEDS ORDERED: ONDANSETRON HCL INJ/PF 4 MG/2 ML SDV IV ONE (14:23)
[2020-05-10] MEDS ORDERED: NORMAL SALINE 1000 ML 1,000 ML IV ONE (14:23)
[2020-05-10 14:25] LABS: PROTHROMBIN TIME 13.4 SEC (11.4-15.4)
--- NOTE | 2020-05-10 14:26 | ER Document Report ---
ED General - General Chief Complaint: Breathing Difficulty Stated Complaint: SHORTNESS OF BREATH/SORE THROAT Time Seen by Provider: 05/10/20 13:56 Primary Care Provider: MAC GARCIA MD [Primary Care Provider] - Follow up as needed TRAVEL OUTSIDE OF THE [place] IN LAST 30 DAYS: No - HPI Notes: Patient is a 74-year-old female who presents emergency department for evaluation of nausea, difficulty breathing, chest tightness and pressure. She states that her symptoms been going on for over a week. She believes is all secondary to her tardive dyskinesia. She was started on trihexyphenidyl and benztropine, but states they caused a dry mouth, and she is no longer taking them. She states that she has a markedly diminished appetite, and she feels nauseated, although she is not had any emesis. She states she is had diminished p.o. intake. She denies any fevers or chills. No coughing. She describes a tightness in the center of her chest that is been present intermittently for about a week. She has had similar symptoms in the past. This chest heaviness is not affected by exertion. - Related Data Allergies/Adverse Reactions: prochlorperazine [From Compazine] Allergy (Verified 10/12/17 14:06) Home Medications: Nexium 40 mg twice a day, lisinopril 40 mg twice a day, Toprol 100 mg daily, Myrbetriq 25 mg daily, Zoloft 100 mg twice a day, fish oil, vitamin D, and vitamin B12 Past Medical History - General Information source: Patient - Social History Smoking Status: Unknown if Ever Smoked Frequency of alcohol use: None Drug Abuse: None Family History: Reviewed & Not Pertinent - Past Medical History Cardiac Medical History: Reports: Hx Hypercholesterolemia, Hx Hypertension Neurological Medical History: Reports: Other - Dystonia and tardive dyskinesia Renal/ Medical History: Denies: Hx Peritoneal Dialysis GI Medical History: Reports: Hx Irritable Bowel Psychiatric Medical History: Reports: Hx Anxiety, Hx Depression Past Surgical History: Reports: Hx Abdominal Surgery - Oratory laparotomy, Hx Cholecystectomy, Hx Hysterectomy, Hx Neurologic Surgery - Cervical fusion from C4 through C7, Hx Orthopedic Surgery - Right carpal tunnel surgery, left wrist tendonitis surgery, shoulder surger, Hx Tonsillectomy, Other - Right eye surgery. L4-5 lumbar laminectomy Review of Systems - Review of Systems Constitutional: Weakness Cardiovascular: See HPI Respiratory: See HPI Gastrointestinal: See HPI Neurological/Psychological: See HPI -: Yes All other systems reviewed and negative Physical Exam - Vital signs Vitals: Pulse Ox 96 05/10/20 13:16 - Notes Notes: This is a 74-year-old female who appears her stated age. She is sitting upright in the bed, exhibiting multiple signs of her tardive dyskinesia. Head is normocephalic and atraumatic, pupils are equal, reactive to light. Oral mucosa is moist. Uvula is midline. Heart is regular rate and rhythm, lungs are clear to auscultation bilaterally. Abdomen soft, nontender, normoactive bowel sounds. Extremities without cyanosis, clubbing, edema. Posterior calves are nontender. Peripheral pulses are equal. Skin is warm and dry. Patient is awake and alert, cooperative with examiner. She moves all 4 extremities spontaneously. Course - Re-evaluation Re-evalutation: 05/10/20 14:27 Patient presents to the emergency department for evaluation of nausea, shortness of breath, chest tightness. I suspect this is all secondary to her tardive dyskinesia, as does the patient. At any rate, we will evaluate with cardiac work-up. I will go ahead and give her IV fluids, Cogentin, Zofran. Patient is currently stable, we will continue to monitor. 05/10/20 17:18 After receiving Cogentin, patient's movements and breathing seem to have improved, but she is now tachycardic with a heart rate in the 120 range. She states she is overall feeling better, but I do not have a clear etiology for this elevated heart rate. CT angiogram of the chest is ordered to evaluate for the possibility of a pulmonary embolus. Further history was obtained from the . He states that, because of increased anxiety, she had been taking Benadryl every 4 hours for approximately 2 weeks. Patient states she has not had any Benadryl in nearly a week. She admits she was taking that because of increased anxiety, admits to increased anxiety at this time. 05/10/20 18:08 Patient continues to be tachycardic. She admits to anxiety, ongoing. Overnight give her some Ativan. Still awaiting CT angiogram of the chest. 05/10/20 19:03 Report from , given to nurse, was that patient had significant memory problems with Ativan. Decision was made not to proceed with this medication. CT angiogram of the chest is unremarkable. I still do not have a clear etiology of this patient's tachycardia. She has no signs of infection. I suspect this is all anxiety. We will continue to monitor. 05/10/20 19:28 I was notified by nursing that patient's had become quite belligerent on the phone. He became insistent that we "were not doing anything for her." He states he wants to pick up driver the patient. I wanted to talk to the patient, she stated simply "I think it is time to go." I explained to her that I was sorry she was unhappy with her care. I hope she felt reassured that she had a negative work-up here, including a negative CT chest. She had been given IV fluids, nausea medication, medication to help her with her tremors. She told me that she was simply here to get a medication to help her appetite. This was the first time she had ever told me this during our multiple interactions in the em ergency department. I explained to her that would be a more appropriate request from her primary care provider, as this would be an ongoing medication. I suspect her mild tachycardia is likely secondary to the Cogentin, but I would have liked to monitor here and perform more test. Patient would prefer to leave, and will sign out AGAINST MEDICAL ADVICE. I explained her that I do not have a clear etiology for all of her symptoms, and she voiced understanding, but still wishes to leave the department AGAINST MEDICAL ADVICE. - Vital Signs Vital signs: Temp Pulse Resp BP Pulse Ox 26 H 117/87 H 96 05/10/20 19:00 05/10/20 17:00 05/10/20 19:00 - Laboratory Result Diagrams: 05/10/20 13:35 05/10/20 13:35 Laboratory results interpreted by me: 05/10/20 05/10/20 13:35 13:35 VBG pCO2 33.7 L VBG HCO3 19.9 L Chloride 108 H Carbon Dioxide 21 L BUN 26 H Est GFR ( Amer) 54 L Est GFR (MDRD) Non-Af 45 L Glucose 124 H AST 44 H ALT 37 H - Diagnostic Test Radiology reviewed: Reports reviewed Radiology results interpreted by me: 05/10/20 19:04 Chest X-Ray 05/10/20 13:16 IMPRESSION: NO ACUTE RADIOGRAPHIC FINDING IN THE CHEST. Chest/Abdomen CTA 05/10/20 17:17 IMPRESSION: There is no pulmonary embolus. There is no aortic aneurysm or dissection. No acute pulmonary findings. - EKG Interpretation by Me Additional EKG results interpreted by me: 05/10/20 19:05 Wandering baseline and large amount of interference limit interpretation of this EKG. Sinus tachycardia with a rate of 109 bpm. Left axis deviation. Nonspecific ST changes, but no acute ST elevation concerning for infarction. Discharge - Discharge Clinical Impression: Tachycardia, Chest pain, Decreased appetite, Tardive dyskinesia, Dystonia Condition: Stable Disposition: AGAINST MEDICAL ADVICE Instructions: Chest Pain of Unclear Cause ([facility]) Additional Instructions: Today you had multiple tests, including blood test, CT scan of the chest. You were given medications to help with your tremor, your nausea, given IV fluids. No blood clots were identified, no significant abnormality was noted to your lungs. Your blood work was unremarkable. Your heart rate, however, remained elevated. This may be because of the medication, but further testing may be appropriate. You have elected to leave AGAINST MEDICAL ADVICE. If you change your mind at any point, please return immediately to the emergency department for further evaluation. Otherwise, please do not take Benadryl for anxiety ar ound the clock, as this may cause elevated heart rate and dry mouth. You should follow-up with your primary care provider in regards to receiving a medication to help with your appetite. Please follow-up with your primary care provider as soon as possible. Return to the ED with worsening, or certainly if you change your mind regarding further evaluation. Referrals: MAC GARCIA MD [Primary Care Provider] - Follow up as needed
[2020-05-10 14:30] LABS: ALBUMIN 4.6 g/dL (3.5-5.0); ALKALINE PHOSPHATASE 116 U/L (38-126); ANION GAP 10 (5-19); ASPARTATE AMINO TRANSFERASE 44 U/L (14-36); BILIRUBIN,DIRECT 0.1 mg/dL (0.0-0.4); BILIRUBIN,TOTAL 0.5 mg/dL (0.2-1.3); BLOOD UREA NITROGEN 26 mg/dL (7-20); CALCIUM 10.2 mg/dL (8.4-10.2); CARBON DIOXIDE 21 mmol/L (22-30); CHLORIDE 108 mmol/L (98-107); GLUCOSE 124 mg/dL (75-110); POTASSIUM 4.8 mmol/L (3.6-5.0); TOTAL PROTEIN 7.2 g/dL (6.3-8.2)
--- NOTE | 2020-05-10 17:14 | EKG REPORT ---
SEVERITY:- ABNORMAL ECG - SINUS TACHYCARDIA 109. PROBABLE INFERIOR INFARCT, OLD NONSPECIFIC T ABNORMALITIES, ANTERIOR LEADS : Confirmed by: Best Lovelace MD 10-May-2020 17:13:48
[2020-05-10] MEDS ORDERED: LORAZEPAM INJ 2 MG/1 ML VIAL IV ONE (18:07)
--- NOTE | 2020-05-10 18:35 | RADIOLOGY REPORT (SQ) ---
EXAM DESCRIPTION: CTA CHEST IMAGES COMPLETED DATE/TIME: 05/10/2020 6:07 pm REASON FOR STUDY: Eval for PE, tachycardia, dyspnea COMPARISON: None. TECHNIQUE: CT scan of the chest performed using helical scanning technique with dynamic intravenous contrast injection. Images reviewed with lung, soft tissue and bone windows. Reconstructed coronal and sagittal MPR images reviewed. Additional 3 dimensional post-processing performed to develop Maximal Intensity Projection images (NH P). All images stored on PACS. All CT scanners at this facility use dose modulation, iterative reconstruction, and/or weight based d osing when appropriate to reduce radiation dose to as low as reasonably achievable (ALARA). [facility]: Dose Right [facility]: CareDose [facility]: Dose Right [facility]: Teradose 4D [facility]: [employer] CONTRAST TYPE AND DOSE: contrast/concentration: Isovue 350.00 mmol/ml; Total Contrast Delivered: 70. 0 ml; Total Saline Delivered: 51.9 ml Contrast bolus adequate for pulmonary arteries and aorta. RENAL FUNCTION: BUN 26 creatinine 1.1 RADIATION DOSE: CT Rad equipment meets quality standard of care and radiation dose reduction techniq ues were employed. CTDIvol: 6.6 - 14.9 mGy. DLP: 605 mGy-cm. . LIMITATIONS: None. FINDINGS: LUNGS AND PLEURA: No masses, infiltrates, or pneumothorax. No pleural effusions or pleura l calcifications. AORTA AND GREAT VESSELS: No aneurysm. No dissection. HEART: No pericardial effusion. Moderate coronary artery calcifications. PULMONARY ARTERIES: No emboli visualized in the main pulmonary arteries or the segmental branches. HILAR AND MEDIASTINAL STRUCTURES: No identified masses or abnormal nodes. HARDWARE: None in the chest. UPPER ABDOMEN: No significant findings. Limited exam. THYROID AND OTHER SOFT TISSUES: No masses. No adenopathy. BONES: No acute or significant finding. 3D MIPS: Confirm above findings. OTHER: No other significant finding. IMPRESSION: There is no pulmonary embolus. There is no aortic aneurysm or dissection. No acute pul monary findings. COMMENT: Quality ID # [id number]: Final reports with documentation of one or more dose reduction techniques (e.g., Automated exposure control, adjustment of the mA and/or kV according to patient size, use of iterative reconstruction technique) TECHNICAL DOCUMENTATION: JOB ID: [id number] 2010 [employer]- All Rights Reserved Reading location - IP/workstation name: [email or web address]
[2020-05-10 18:45] VITALS: BP 117/87
== END 2020-05-10 19:55 | disposition left against medical advice (07) ==
LOC: ER 13:09
DX: G24.01 Drug induced subacute dyskinesia (principal); G24.9 Dystonia, unspecified; F50.89 Other specified eating disorder; R00.0 Tachycardia, unspecified; J02.9 Acute pharyngitis, unspecified; R07.9 Chest pain, unspecified; R06.00 Dyspnea, unspecified; R11.0 Nausea; R53.1 Weakness; E78.00 Pure hypercholesterolemia, unspecified; I10 Essential (primary) hypertension; Z98.1 Arthrodesis status
CPT/HCPCS: 93005; 99285; 96372; 96361; 96374; 36415; 87040; 83605; 85025; 85610; 80053; 84484; 82803; 71045; 71275; 93010; J0515; J2405; J7030

== ENCOUNTER 2020-07-08 14:09 | Emergency (ER) | payer MEDICARE, BC ==
--- NOTE | 2020-07-08 14:18 | ER Document Report ---
ED Medical Screen (RME) - General Chief Complaint: Shortness Of Breath Stated Complaint: SHORTNESS OF BREATH Time Seen by Provider: 07/08/20 14:10 Primary Care Provider: MAC GARCIA MD [Primary Care Provider] - Follow up as needed Notes: Patient presents complaining of difficulty breathing for the past week with upper abdominal tenderness. Patient has a history of dystonia and is uncertain if this may be causing her upper abdominal tenderness. Patient does report some nausea. Patient denies any chest pain. I have greeted and performed a rapid initial assessment of this patient. A comprehensive ED assessment and evaluation of the patient, analysis of test results and completion of the medical decision making process will be conducted by additional ED providers. TRAVEL OUTSIDE OF THE [place] IN LAST 30 DAYS: No - Related Data Allergies/Adverse Reactions: prochlorperazine [From Compazine] Allergy (Verified 10/12/17 14:06) Past Medical History - Past Medical History Cardiac Medical History: Reports: Hx Hypercholesterolemia, Hx Hypertension Renal/ Medical History: Denies: Hx Peritoneal Dialysis GI Medical History: Reports: Hx Irritable Bowel Psychiatric Medical History: Reports: Hx Anxiety, Hx Depression Past Surgical History: Reports: Hx Abdominal Surgery - Oratory laparotomy, Hx Cholecystectomy, Hx Hysterectomy, Hx Neurologic Surgery - Cervical fusion from C4 through C7, Hx Orthopedic Surgery - Right carpal tunnel surgery, left wrist tendonitis surgery, shoulder surger, Hx Tonsillectomy, Other - Right eye surgery. L4-5 lumbar laminectomy Physical Exam - General General appearance: Alert, Anxious - Respiratory Respiratory status: Tachypnea Breath sounds: Normal Doctor's Discharge - Discharge Referrals: MAC GARCIA MD [Primary Care Provider] - Follow up as needed
[2020-07-08 15:07] LABS: ABSOLUTE BASOPHILS # (AUTO) 0.1 10^3/uL (0.0-0.2); ABSOLUTE EOSINOPHILS # (AUTO) 0.1 10^3/uL (0.0-0.6); ABSOLUTE LYMPHOCYTES (AUTO) 1.8 10^3/uL (0.5-4.7); ABSOLUTE MONOCYTES (AUTO) 0.5 10^3/uL (0.1-1.4); ABSOLUTE NEUT (AUTO) 6.6 10^3/uL (1.7-8.2); BASOPHILS % (AUTO) 0.7 % (0-2); EOSINOPHILS % (AUTO) 1.1 % (0-6); HEMATOCRIT 43.8 % (36.0-47.0); HEMOGLOBIN 15.4 g/dL (12.0-15.5); LYMPHOCYTES % (AUTO) 19.5 % (13-45); MEAN CORPUSCULAR HEMOGLOBIN 31.4 pg (27.0-33.4); MEAN CORPUSCULAR HGB CONC 35.1 g/dL (32.0-36.0); MEAN CORPUSCULAR VOLUME 90 fl (80-97); PLATELET COUNT 255 10^3/uL (150-450); RED BLOOD COUNT 4.89 10^6/uL (3.72-5.28); RED CELL DISTRIBUTION WIDTH 13.6 % (11.5-14.0); SEGMENTED NEUTROPHILS % (AUTO) 72.7 % (42-78); TOTAL CELLS COUNTED % (AUTO) 100 %
[2020-07-08 15:14] LABS: ALBUMIN 4.8 g/dL (3.5-5.0); ALKALINE PHOSPHATASE 87 U/L (38-126); ANION GAP 13 (5-19); ASPARTATE AMINO TRANSFERASE 31 U/L (14-36); BILIRUBIN,DIRECT 0.3 mg/dL (0.0-0.4); BILIRUBIN,TOTAL 0.9 mg/dL (0.2-1.3); BLOOD UREA NITROGEN 16 mg/dL (7-20); CALCIUM 10.6 mg/dL (8.4-10.2); CARBON DIOXIDE 23 mmol/L (22-30); CHLORIDE 107 mmol/L (98-107); GLUCOSE 117 mg/dL (75-110); POTASSIUM 4.2 mmol/L (3.6-5.0); TOTAL PROTEIN 7.3 g/dL (6.3-8.2)
--- NOTE | 2020-07-08 15:22 | RADIOLOGY REPORT (SQ) ---
EXAM DESCRIPTION: CHEST SINGLE VIEW IMAGES COMPLETED DATE/TIME: 07/08/2020 3:11 pm REASON FOR STUDY: sob COMPARISON: 05/10/2020 EXAM PARAMETERS: NUMBER OF VIEWS: One view. TECHNIQUE: Single frontal radiographic view of the chest acquired. RADIATION DOSE: NA LIMITATIONS: None. FINDINGS: LUNGS AND PLEURA: No opacities, masses or pneumothorax. No pleural effusion. MEDIASTINUM AND HILAR STRUCTURES: No masses. Contour normal. HEART AND VASCULAR STRUCTURES: Heart normal in size. Normal vasculature. BONES: No acute findings. HARDWARE: Partially imaged cervicothoracic junction ACDF hardware. OTHER: No other significant finding. IMPRESSION: NO ACUTE RADIOGRAPHIC FINDING IN THE CHEST. TECHNICAL DOCUMENTATION: JOB ID: [id number] 2010 [employer]- All Rights Reserved Reading location - IP/workstation name: [email or web address]
[2020-07-08 15:25] LABS: NT PRO BNP 165 pg/mL (<125)
[2020-07-08 15:32] LABS: TROPONIN I < 0.012 ng/mL
[2020-07-08] MEDS ORDERED: DIPHENHYDRAMINE HCL 50 MG/ML VIAL IV ONE (15:36)
[2020-07-08] MEDS ORDERED: LORAZEPAM INJ 2 MG/1 ML VIAL IV ONE (15:36)
--- NOTE | 2020-07-08 16:03 | ER Document Report ---
Entered by REDD PATEL SCRIBE 07/08/20 1524 Acting as scribe for:KEN OROZCO MD ED General - General Chief Complaint: Breathing Difficulty Stated Complaint: SHORTNESS OF BREATH Time Seen by Provider: 07/08/20 14:10 Primary Care Provider: MAC GARCIA MD [Primary Care Provider] - Follow up as needed Mode of Arrival: Ambulatory Information source: Patient Notes: This 74-year-old female patient with tardive dyskinesia and dystonia presents to the emergency department today with complaints of shortness of breath for the last week. Patient reports that she had a "little bit of a cough yesterday and today". Patient reports she is started having tardive dyskinesia and dystonia in 2014 and had all her psychiatric medications stopped. She reports that it seemed to come back bad in May of this year. She has had Botox injections for this problem in the past and has an appointment to see the doctor in [place] who did her last injections. TRAVEL OUTSIDE OF THE [place] IN LAST 30 DAYS: No - Related Data Allergies/Adverse Reactions: prochlorperazine [From Compazine] Allergy (Verified 10/12/17 14:06) Past Medical History - General Information source: Patient - Social History Smoking Status: Never Smoker Cigarette use (# per day): No Frequency of alcohol use: None Drug Abuse: None Lives with: Family Family History: Reviewed & Not Pertinent - Past Medical History Cardiac Medical History: Reports: Hx Hypercholesterolemia, Hx Hypertension GI Medical History: Reports: Hx Irritable Bowel Psychiatric Medical History: Reports: Hx Anxiety, Hx Depression Past Surgical History: Reports: Hx Abdominal Surgery - Exploratory laparotomy, Hx Cholecystectomy, Hx Hysterectomy, Hx Neurologic Surgery - Cervical fusion from C4 through C7, Hx Orthopedic Surgery - Right carpal tunnel surgery, left wrist tendonitis surgery, shoulder surger, Hx Tonsillectomy, Other - Right eye surgery. L4-5 lumbar laminectomy Review of Systems - Review of Systems Constitutional: No symptoms reported EENT: No symptoms reported Cardiovascular: No symptoms reported Respiratory: See HPI, Short of breath Gastrointestinal: No symptoms reported Genitourinary: No symptoms reported Female Genitourinary: No symptoms reported Musculoskeletal: See HPI, Other - Jerking movements tardive dyskinesia versus dystonia Skin: No symptoms reported Hematologic/Lymphatic: No symptoms reported Neurological/Psychological: No symptoms reported -: Yes All other systems reviewed and negative Physical Exam - Vital signs Vitals: Resp Pulse Ox 21 H 99 07/08/20 14:28 07/08/20 14:28 - Notes Notes: Physical Exam: General: Alert, jerking movements consistent with tardive dyskinesia versus dystonia. HEENT: Normocephalic. Atraumatic. PERRL. Extraocular movements intact. Oroph arynx clear. Neck: Supple. Non-tender. Respiratory: No respiratory distress. Jerky breathing but breath sounds are clear and equal bilaterally. Cardiovascular: Regular rate and rhythm. Abdominal: Normal Inspection. Non-tender. No distension. Normal Bowel Sounds. Back: No gross abnormalities. Extremities: Moves all four extremities. Upper extremities: Normal inspection. Normal ROM. Lower extremities: Normal inspection. No edema. Normal ROM. Neurological: jerking movements consistent with tardive dyskinesia versus dystonia. Psychological: Normal affect. Normal Mood. Skin: Warm. Dry. Normal color. Course - Re-evaluation Re-evalutation: 07/08/20 18:25 Patient reports that her breathing difficulty improved dramatically as soon as she got the Ativan. She also received Benadryl, but she tells me she takes Benadryl at home and it does not seem to help, and she has had Cogentin in the past and that did not seem to help. She still has the jerky breathing and somewhat hoarse voice, and in getting a more thorough history she has had Botox injections for these issues in the past. - Vital Signs Vital signs: Temp Pulse Resp BP Pulse Ox 18 156/93 H 97 07/08/20 18:30 07/08/20 18:30 07/08/20 18:30 - Laboratory Result Diagrams: 07/08/20 14:35 07/08/20 14:35 Laboratory results interpreted by me: 07/08/20 07/08/20 14:35 14:35 Glucose 117 H Calcium 10.6 H NT-Pro-B Natriuret Pep 165 H - Diagnostic Test Radiology reviewed: Reports reviewed - No acute radiographic findings in the chest x-ray. - EKG Interpretation by Me EKG shows normal: Sinus rhythm, [place], Intervals, QRS Complexes, ST-T Waves Rate: Tachycardia - 100 When compared to previous EKG there are: No significant change Discharge - Discharge Clinical Impression: Dystonia, Anxiety Dyspnea Qualifiers: Dyspnea type: unspecified Qualified Code(s): R06.00 - Dyspnea, unspecified Condition: Stable Disposition: HOME, SELF-CARE Additional Instructions: Your dystonia and jerky breathing seem to improve after the Ativan. We will add a prescription for Ativan as needed to help control your breathing difficulty. You should follow-up with your primary care provider in the next several days to discuss whether or not to continue with that medication, as there are concerns for its addiction potential. You should also follow-up with the doctor who gave you your Botox injections to see if that might help your dystonia and breathing problems. RETURN TO THE EMERGENCY ROOM IF ANY NEW OR WORSENING SYMPTOMS. Prescriptions: Lorazepam [Ativan 0.5 mg Tablet] 0.5 mg PO ASDIR PRN #20 tab PRN Reason: Referrals: MAC GARCIA MD [Primary Care Provider] - Follow up as needed I personally performed the services described in the documentation, reviewed and edited the documentation which was dictated to the scribe in my presence, and it accurately records my words and actions.
--- NOTE | 2020-07-08 18:15 | EKG REPORT ---
SEVERITY:- DEFECTIVE ECG - SINUS TACHYCARDIA INDETERMINATE QRS AXIS : Confirmed by: Best Lovelace MD 08-Jul-2020 18:14:11
[2020-07-08 18:51] VITALS: BP 156/93
== END 2020-07-08 18:51 | disposition home or self-care (01) ==
LOC: ER 14:09
DX: F41.9 Anxiety disorder, unspecified (principal); R06.02 Shortness of breath; G24.9 Dystonia, unspecified; R00.0 Tachycardia, unspecified; R05 Cough; I10 Essential (primary) hypertension; Z79.899 Other long term (current) drug therapy; Z88.8 Allergy status to other drugs, medicaments and biological substances
CPT/HCPCS: 93005; 99285; 96374; 96375; 36415; 83690; 85025; 80053; 84484; 83880; 71045; 93010; J1200; J2060

== ENCOUNTER → 2020-07-26 | Outpatient (CLI) | payer MEDICARE, BC ==
--- NOTE | 2020-07-26 14:00 | WOMENS IMAGING REPORT ---
EXAM DESCRIPTION: BILAT SCREENING MAMMO W/CAD IMAGES COMPLETED DATE/TIME: 07/26/2020 1:36 pm REASON FOR STUDY: Z12.31 ENCNTR SCREEN MAMMOGRAM FOR MALIGNANT NEOPLASM OF BREAST Z12.31 ENCNTR SCR EEN MAMMOGRAM FOR MALIGNANT NEOPLASM OF CAIN M81.0 AGE-RELATED OSTEOPOROSIS W/O CURRENT PATHOLOGICAL FRAC COMPARISON: Priors dating back to 2013. EXAM PARAMETERS: Standard craniocaudal and mediolateral oblique views of each breast recorded using digital acquisition. Read with the assistance of CAD. .COUNTS INCLUDE 234 BEDS AT THE [facility] - [facility] Tube Bender Version 9.2 LIMITATIONS: None. FINDINGS: No suspicious masses, suspicious calcifications or architectural distortion. No areas of c oncern. IMPRESSION: NEGATIVE MAMMOGRAM. BIRADS 1 BREAST DENSITY: b. There are scattered areas of fibroglandular density. BIRAD: ASSESSMENT: 1 NEGATIVE RECOMMENDATION: ROUTINE SCREENING COMMENT: The patient has been notified of the results by letter per MQSA requirements. Additional no tification policies are in place for contacting patient with suspicious or incomplete findings. Quality ID #[id number]: The [employer] recommends an annual screening mammogram for women aged 40 years or over. This facility utilizes a reminder system to ensure that all patients receive reminder letters, and/or direct phone calls for appointments. This includes reminders for routine scr eening mammograms, diagnostic mammograms, or other Breast Imaging Interventions when appropriate. Th is patient will be placed in the appropriate reminder system. TECHNICAL DOCUMENTATION: FINDING NUMBER: (1) ASSESSMENT: (1) JOB ID: [id number] 2010 [employer]- All Rights Reserved Reading location - IP/workstation name: [email or web address]
--- NOTE | 2020-07-26 14:04 | WOMENS IMAGING REPORT ---
EXAM DESCRIPTION: BONE DENSITY HIP/SPINE IMAGES COMPLETED DATE/TIME: 07/26/2020 1:36 pm REASON FOR STUDY: M81.0 AGE-RELATED OSTEOPOROSIS W/O CURRENT PATHOLOGICAL FRACTURE Z12.31 ENCNTR SC REEN MAMMOGRAM FOR MALIGNANT NEOPLASM OF CAIN M81.0 AGE-RELATED OSTEOPOROSIS W/O CURRENT PATHOLOGICAL FRAC COMPARISON: 12/29/2013 TECHNIQUE: Dual-Energy X-ray Absorptiometry (DEXA) of the AP Spine and Hip. LIMITATIONS: None. FINDINGS: LUMBAR SPINE: The bone mineral density (BMD) measured from L1-L4 in the AP projection correlates with a T-score of 0.6, which is normal as defined by the World Health Organization. BMD Change vs Baseline: 2.5%. BMD change from previous 0.5% HIP: The bone mineral density (BMD) measured in the left hip correlates with a T-score of -1.3, which is o steopenia as defined by the World Health Organization. BMD Change vs Baseline: -9.8%. BMD change from previous: -9.5%. 10 year Fracture Risk Assessment: Major Osteoporotic Fracture: 9.9% Hip Fracture: 1.6% IMPRESSION: 1. LUMBAR SPINE WHO CLASSIFICATION: NORMAL. 2. HIP WHO CLASSIFICATION: OSTEOPENIA. OVERALL ASSESSMENT: WHO CLASSIFICATION: OSTEOPENIA. COMMENT: The World Health Organization defines low BMD as follows: T-score: Normal: At or above -1.0 Osteopenia: Between -1.0 and -2.5 Osteoporosis: At or below -2.5 without fractures Established osteoporosis: At or below -2.5 with fractures In general, you may wish to consider: Diagnosis Treatment Follow-up DEXA Normal BMD Prevention 2-3 years Osteopenia Prevention/Therapy 1-2 years Osteoporosis Therapy Yearly TECHNICAL DOCUMENTATION: JOB ID: [id number] 2010 [employer]- All Rights Reserved Reading location - IP/workstation name: [email or web address]
== END ==
LOC: WI 12:58
PROVIDERS: ATTEND Internal Medicine Nephrology
DX: Z12.31 Encounter for screening mammogram for malignant neoplasm of breast (principal); M81.0 Age-related osteoporosis without current pathological fracture
CPT/HCPCS: 77067; 77080